=== PATIENT | male | born 1960 | race Caucasian/White ===

== ENCOUNTER → 2016-04-19 | Day surgery (SDC) | payer BC ==
[2016-04-04 10:16] LABS: BASO % 0.1 %; BASO ABS # 0.01 K/uL (0-0.2); COMPLETE YES; EOS % 1.8 %; HEMATOCRIT 49.8 % (42-52); IG% 0.4 %; LYMPH % 20.7 %; LYMPH ABS # 1.61 K/uL (1.2-3.4); MEAN CELL VOLUME 91.4 fL (80-100); MEAN CORPUSCULAR HEMOGLOBIN 31.7 pg (25-34); MEAN CORPUSCULAR HGB CONC 34.7 g/dl (32-36); MEAN PLATELET VOLUME 9.9 fL (7.4-10.4); MONO % 6.3 %; NEUT % 70.7 %; PLATELET COUNT 268 K/uL (130-400); RED BLOOD COUNT 5.45 M/uL (4.7-6.1); WHITE BLOOD COUNT 7.77 K/uL (4.8-10.8)
[2016-04-04 10:54] LABS: BLOOD UREA NITROGEN 20 mg/dl (7-18); BUN/CREATININE RATIO 19.7 (10-20); CARBON DIOXIDE 32 mmol/L (21-32); CHLORIDE 104 mmol/L (98-107); GLUCOSE 101 mg/dl (70-99); POTASSIUM 4.5 mmol/L (3.5-5.1); SODIUM 141 mmol/L (136-145)
[2016-04-05 07:50] VITALS: Ht 177.8 cm; Wt 79.5 kg
[~2016-04-19] VITALS: Ht 177.8 cm; Wt 79.5 kg
[~2016-04-19] MED LIST: AMLO-110 PO; ATROPINE SULFATE 0.1 MG/ML 5ML SYR IV PRN; BUPIVACAINE/EPINEPHRINE 0.5% MPF 1:200,000 30 ML VIAL ONE; CEFAZOLIN 2000 MG/60 ML D5W IV SCH; DEXAMETHASONE SOD INJ 4 MG/ML VIAL ONE; EpHEDrine SULFATE INJ 50 MG/ML AMP IV PRN; FENTANYL CITRATE INJ 50 MCG/1 ML 2 ML VIAL IV PRN; FENTANYL CITRATE INJ 50 MCG/1 ML 2 ML VIAL ONE; HYDROCODONE/ACETAMOPHEN 5/325MG TAB ONE; HYDROCODONE/ACETAMOPHEN 5/325MG TAB PO ONE; LACTATED RINGER'S 1000ML 1,000 ML IV SCH; LIDOCAINE HCL 2% 2 ML VIAL (20MG/ML) ONE; MIDAZOLAM HCL 1 MG/ML 2ML VIAL ONE; MoRPHine SULFATE PF 1 MG/ML 10 ML AMP/VIAL ONE; ONDANSETRON INJ 2 MG/ML 2 ML VIAL IV PRN; ONDANSETRON INJ 2 MG/ML 2 ML VIAL ONE; PROPOFOL IV EMULSION 10 MG/ML 20 ML VIAL IV ONE; SODIUM CHLORIDE 0.9% 1000ML 1,000 ML IV SCH; SUMA6KIT SC; WARF5TAB7 PO
--- NOTE | 2016-04-19 11:50 | History & Physical Bridge Note ---
H&P Re-Evaluation Bridge Note: I have examined the patient, reviewed the History & Physical and in the interval since the performance of the History & Physical I have noted the following changes of clinical significance: No changes noted
--- NOTE | 2016-04-19 11:51 | Discharge Instructions ---
Discharge Instructions Visit Reason for Visit: Left Knee Lateral Meniscus Tear Discharge Discharge Diagnosis / Problem: same Discharge Goals Goal(s): Decrease discomfort, Improve function Medications Stopped Medications Name(s): last coumadin 04/13 Activity Recommendations Activity Limitations: as noted below Lifting Limitations: until after follow-up appointment Exercise/Sports Limitations: until after follow-up appointment May Resume Sexual Activity: after follow-up appointment Shower/Bathe: keep incision dry Driving or Machine Use: no limitations Weightbearing Status: Left weightbearing (as tolerated) Anesthesia . Post Anesthesia Instructions: If you have had General Anesthesia or IV Sedation: * Do not drive today. * Resume driving when surgeon permits. * Do not make important decisions or sign legal documents today. * Call surgeon for: 1. Temperature elevations greater than 101 degrees F. 2. Uncontrollable pain. 3. Excessive bleeding. 4. Persistent nausea and vomiting. 5. Medication intolerance (nausea, vomiting or rash). * For nausea and vomiting use only clear liquids such as: tea, soda, bouillon until nausea subsides, then gradually increase diet as tolerated. * If you have any concerns or questions, call your surgeon's office. If physician is unavailable and it is an emergency, call 911 or go to the nearest emergency room. . Instructions / Follow-Up Instructions / Follow-Up The following are instructions to follow after your Arthroscopic Knee Surgery. ACTIVITY RECOMMENDATIONS: * Minimize activity until your first visit after surgery. * No excessive walking, jogging, sports or laboring. * Return to activity is individualized. Most patients are able to return to every day activities within one month. * Return to sports or intensive labor usually occurs at 2-3 months. * Driving is not permitted until at least your first postoperative visit at a minimum. Please ask your doctor when it is safe to resume driving. If you have an automatic vehicle and your left leg has been operated on, then you may begin driving as soon as you are comfortable and can drive safely. SCHOOL/WORK RECOMMENDATIONS: * You may return to sedentary work or school when you are feeling more comfortable. This is usually 3-7 days after surgery. * Expect increased discomfort with increased activity. Continue to elevate and ice the leg as much as possible. MEDICATIONS: * You will have a prescription for pain medication and an anti-inflammatory medication after surgery. * Use the pain medication for severe pain and the anti-inflammatory for less severe pain. Once the pain medication has run out, try to use the anti-inflammatory medication. If this is not effective, contact the office for assistance. * The pain medication may cause nausea, constipation and drowsiness. You should see how they affect you before driving or similar activity. * The anti-inflammatory medication may cause stomach upset and bleeding. If this occurs let your doctor know immediately . * Take a stool softener like Colace or a laxative like Senokot to prevent constipation. DIET: * Resume previous diet. SPECIAL CARE: ICE: You have the option of an ice cooler, gel packs or ice bags. * If you have an ice cooler, refer to the instructions for that device. The ice cooler may be used continuously. * If you do not have an ice cooler, you will need to use ice bags or gel packs. Do not apply ice directly to the skin. Use a thin dressing or tiffany shirt between the skin and ice bag. Apply ice for 20-30 minutes and repeat every 2-4 hours. This is especially important for the first 7-10 days after surgery. Once the pain improves, use ice as needed. ELEVATION: * Keep your leg elevated at or above the level of your heart as much as possible. * Expect some increased discomfort and swelling if you are standing for any length of time. * When lying down, avoid placing anything under your knee. Rather, prop your leg up by placing several pillows under your heel or calf. DRESSING: * Your dressing will be changed at your first therapy appointment approximately 4-5 days after surgery. Band-aids, tape strips or gauze may be applied. You may then change your dressing daily. * Reapply dressing followed by the Kemal wrap or Tubi-electrotype molder stockinet and EBIce cooling pad (if chosen). * Always wash your hands prior to touching the incision area. * Once the stitches are removed, you may leave the wound open to air or cover with an Kemal wrap or Tubi-electrotype molder stockinet. * If you have been given a white elastic stocking (CHATO hose), wear as much as possible for the first 1-3 weeks depending on swelling. * Expect some bloody drainage for the first few days after surgery. * Leave the tape strips, if present, in place for 5-7 days. * Band-aids and gauze may be changed daily. CRUTCHES: * You will need to use crutches after surgery. * You may gradually progress to full weight bearing as tolerated and wean off the crutches unless otherwise advised. * Your therapist can provide assistance weaning off crutches. * Patients who have a microfracture done may need to be toe-touch weight- bearing for 4-6 weeks. BATHING: * You may shower or sponge-bathe immediately after surgery. * The dressing will need to be covered with a plastic bag or plastic wrap until the dressing is changed on the fourth or fifth day after surgery. * Once the dressing has been changed on the fourth or fifth day after surgery, you may shower and get the incision wet. * Wash with regular soap and water. * Do not bathe (submerge the incision), soak, swim or use a hot tub until the incision is completely healed over with normal skin and the doctor has given the OK to proceed. * There is no need to apply any ointments, powders or salves to your incision. * Do not apply alcohol or hydrogen peroxide directly to the incision. * Diluted peroxide (50:50 mixture with sterile saline) may be used to clean dried blood from around the incision area. BRACE: * Bracing is generally not needed after routine Arthroscopic Knee surgery. THERAPY: * You will begin therapy four or five days after surgery. * Organized therapy with the therapist is important for the first 4-6 weeks after surgery. During that time you will attend therapy 1-3 times per week. * You will also need to do daily exercises for range of motion and strength as instructed. PROBLEMS/QUESTIONS: * If you have any problems such as severe pain, numbness, tingling or high fevers or if you have any questions, please contact the office at [phone]. * It is not uncommon to have some numbness and tingling after the surgery especially if you have had a nerve block done. This should gradually improve over the first 1- 2 days. If this persists longer or worsens please contact the office. FOLLOW UP VISIT: * If not already scheduled, please call the office at to schedule a follow-up appointment for 10 days, 6 weeks and 3 months after surgery. Diet Recommendations Recommended Home Diet: resume previous diet Fluid Restriction: None Procedures Procedures Performed: see op note Pending Studies Studies pending at discharge: no Medical Emergencies . Who to Call and When: Medical Emergencies: If at any time you feel your situation is an emergency, please call 911 immediately. . Non-Emergent Contact Non-Emergency issues call your: Specialist Call Non-Emergent contact if: temperature is above 101.5 . . "Provider Documentation" section prepared by Kevin Hendrix.
--- NOTE | 2016-04-19 12:39 | [facility] Post Operative Brief Note ---
Immediate Operative Summary Operative Date Apr 19, 2016. Pre-Operative Diagnosis Left Knee Lateral Meniscus Tear Post-Operative Diagnosis same/DJD LATERAL COMPARTMENT/PFJ Procedure(s) Performed Left Knee Arthroscopy, Partial Lateral Meniscectomy,Chondroplasty Lateral Femoral Condyle Surgeon Dr. Mike Hendrix Entry Level Marketing Assistant Surgeon(s) Jacinto Starks PA-C Estimated Blood Loss trace Findings SEE OP NOTE Fluids (cc crystalloids) 1000CC Specimens none Drains NONE Anesthesia LMA Complication(s) None Disposition Recovery Room / PACU
--- NOTE | 2016-04-19 13:09 | Anesthesia Progress Nt - [facility] ---
Anesthesia Post Op Note Date & Time Apr 19, 2016 at 13:08 Vital Signs Pain Intensity: 0 Vital Signs Past 12 Hours Date Time Temp Pulse Resp B/P Pulse Ox O2 Delivery O2 Flow Rate FiO2 04/19/16 12:59 68 16 04/19/16 12:59 68 16 100 04/19/16 12:58 108/65 04/19/16 12:54 53 7 99 04/19/16 12:54 53 7 04/19/16 12:53 98/64 04/19/16 12:49 57 13 99 04/19/16 12:49 36.9 56 12 98/65 99 Diffusion Mask 6 04/19/16 12:49 55 13 04/19/16 11:11 36.4 61 16 110/78 98 Room Air Notes Mental Status: alert / awake / arousable, participated in evaluation Pt Amnestic to Procedure: Yes Nausea / Vomiting: adequately controlled Pain: adequately controlled Airway Patency, RR, SpO2: stable & adequate BP & HR: stable & adequate Hydration State: stable & adequate Anesthetic Complications: no major complications apparent
--- NOTE | 2016-04-19 13:18 | OPERATIVE REPORT ---
DATE OF OPERATION: 04/19/2016 PREOPERATIVE DIAGNOSIS: Left knee lateral meniscal tear. POSTOPERATIVE DIAGNOSIS: Left knee same with degenerative joint disease of the lateral compartment and patellofemoral joint. PROCEDURES: Left knee arthroscopy, partial lateral meniscectomy, chondroplasty of the lateral femoral condyle. SURGEON: Dr. Hendrix. ICE RESURFACING MACHINE OPERATORS: Jacinto Starks PA-C. HISTORY OF PRESENT ILLNESS: This 56-year-old white male presented to the office with complaints of lateral knee pain. He had tried conservative care measures without success. He elected to proceed with surgical intervention after being educated about potential risks and outcomes. OPERATION: The patient was taken to the operating room where he was given general anesthetic. He was prepped and draped in the usual sterile fashion. Please see Dr. Hendrix's operative report for specifics of the procedure. I was present for the entire case from initial patient positioning through final wound closure. Assistance was provided in patient positioning, arthroscopy, and final wound closure. The patient was taken to the recovery room in satisfactory condition. I attest to the content of the Intraoperative Record and any orders documented therein. Any exceptio ns are noted below.
--- NOTE | 2016-04-19 13:33 | OPERATIVE REPORT ---
DATE OF OPERATION: 04/19/2016 SURGEON: Dr. Hendrix. SMALL LOT OPERATOR: Jacinto Starks PA-C. No resident or fellow available. PREOPERATIVE DIAGNOSIS: Lateral meniscus tear. POSTOPERATIVE DIAGNOSIS: Same with lateral femoral compartment osteoarthritis as well as patellofemoral joint arthritis. OPERATION: 1. Exam under anesthesia. 2. Diagnostic arthroscopy. 3. Arthroscopic partial lateral meniscectomy. 4. Arthroscopic chondroplasty of lateral femoral condyle and patellofemoral joint. PERIOPERATIVE SITUATION: Medically cleared male with intractable knee pain with physical exam, x-ray and MRI scan revealing some early DJD changes with a large lateral meniscus tear. He has continued mechanical symptoms and pain, wants to proceed with surgical treatment. He is on Coumadin. He was bridged with Lovenox and has now been off Coumadin for 5 days. He did not get any Lovenox in the last 12 hours. OPERATION: The patient appropriately identified, site verified, consent verified, 2 grams of Ancef confirmed as being given. The left lower extremity was examined revealing no ligamentous instability. He was then sterilely injected with 20 mL of 0.5% Marcaine with epinephrine and 5 mg of Duramorph for postoperative pain control. The leg was then prepped and draped in usual routine fashion. The tourniquet was not utilized or applied. Inframedial and inferolateral portals were then identified and injected with 4 mL of 0.5% Marcaine with epinephrine. The knee joint was then entered and there was extensive synovitis. This was all debrided at the end of the case. The medial compartment was relatively healthy with relatively healthy medial meniscus, some minor chondral changes in the most medial aspect of the medial femoral condyle, which was incidentally debrided. The ACL and PCL were normal. The lateral meniscus was quite abnormal as well as the lateral femoral condyle. The lateral femoral condyle had some articular disease grade 4 lesion with some minor bone fragments, this was all removed to a stable base. It was elected not to microfracture based on the fact he had a significant compartment problem with the meniscus tear as well as his age. The lateral meniscus was a large flap tear incarcerated underneath the tibial surface. 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 Once this was all cleaned out and resected, the compartment was clean. The area of the defect was approximately 1.5 x 1.5 cm on the lateral femoral condyle. No other additional loose pieces were noted when the knee was scoped from the opposite side. The procedure was then terminated. All instruments and fluid removed. The portals were closed with 3-0 nylon and dressed appropriately with a bulky dressing and a CHATO stocking. DVT prophylaxis by restarting his routine Coumadin, he is on it chronically. He will get 10 mg tonight and 5 mg thereafter. INR per his primary care doctor. Weightbearing to tolerance. Range of motion to tolerance. I attest to the content of the Intraoperative Record and any orders documented therein. Any exceptio ns are noted below.
[2016-04-19 13:34] VITALS: TEMP 36.3
[2016-04-19 14:10] VITALS: BP 113/74; PULSE 53; O2SAT 95
== END | disposition home or self-care (01) ==
LOC: X.SURG 10:56
PROVIDERS: ATTEND Physical Medicine & Rehabilitation Sports Medicine
DX: M23.362 Other meniscus derangements, other lateral meniscus, left knee (principal); M17.12 Unilateral primary osteoarthritis, left knee; Z79.01 Long term (current) use of anticoagulants; Z86.718 Personal history of other venous thrombosis and embolism; Z86.711 Personal history of pulmonary embolism; Z80.3 Family history of malignant neoplasm of breast; Z80.42 Family history of malignant neoplasm of prostate

== ENCOUNTER 2024-08-29 09:15 | Observation (INO) ==
--- NOTE | 2024-08-15 10:04 | PAT Medication Instructions ---
Medication Instructions Date of Service August 15, 2024 Home Medications Beet Root 1 cap PO DAILY Methylated Vitamin B Complex 1 cap PO DAILY Vitamin C 1 tab PO DAILY amlodipine 5 mg tablet 5 mg PO QAM headaches digestive enzymes 1 cap PO DAILY resveratrol-r.ivca-sxctvct-zvpzc sd-p.cusp.-C-pomg 200 mg-60 mg cap (Red Wine Extract) 1 cap PO DAILY sumatriptan succinate 6 mg/0.5 mL subcutaneous pen injector 6 mg subcut UD PRN migraines warfarin 5 mg tablet 5 mg PO QPM ASK your prescriber and surgeon warfarin 5 mg tablet 5 mg PO QPM STOP taking 2 weeks before surgery (or as soon as possible if surgery is within 2 weeks) Beet Root 1 cap PO DAILY Methylated Vitamin B Complex 1 cap PO DAILY resveratrol-r.aalj-jjinrdd-huvkt sd-p.cusp.-C-pomg 200 mg-60 mg cap (Red Wine Extract) 1 cap PO DAILY DO NOT take the morning of surgery Vitamin C 1 tab PO DAILY digestive enzymes 1 cap PO DAILY Take morning of surgery With a small sip of water, OTHERWISE NOTHING TO EAT OR DRINK AFTER MIDNIGHT: amlodipine 5 mg tablet 5 mg PO QAM headaches sumatriptan succinate 6 mg/0.5 mL subcutaneous pen injector 6 mg subcut UD PRN migraines (if needed) Other Notes If you have any questions please call us at [phone] or [phone] or [phone] or [phone]
--- NOTE | 2024-08-16 11:13 | Anesthesiology Consultation ---
Date of Service August 16, 2024 Assessment & Plan (1) Encounter for pre-operative examination: - Check coags DOS (warfarin instructions per surgeon/prescriber). - Infectious disease screening: Per assessment on 08/15/24- No known recent infectious disease contacts or current infectious disease symptoms. - Outpatient joint assessment: Pt currently scheduled for inpatient pathway. If surgeon requests review for outpatient joint pathway, patient is not recommended candidate for outpatient joint program from anesthesia standpoint based on available information. - Patient acceptable risk for surgery pending upcoming PCP visit (Carolina Alcantar PAC, appt 08/19). History Surgery Operation Date: 08/29/24 11:00 Proposed Procedures p Right Total Hip Arthroplasty - Salvatore Andrade MD Height/Weight Height: 5 ft 10 in Weight: 85 kg Allergies Allergy/AdvReac Type Severity Reaction Status Date / Time oxycodone Allergy Hives Verified 08/15/24 09:32 Medications Home Medications Medication Instructions Recorded Confirmed Last Taken Beet Root 1 cap PO DAILY 08/15/24 08/15/24 Unknown Methylated Vitamin B Complex 1 cap PO DAILY 08/15/24 08/15/24 Unknown Vitamin C 1 tab PO DAILY 08/15/24 08/15/24 Unknown amlodipine 5 mg tablet 5 mg PO QAM headaches 08/15/24 08/15/24 Unknown digestive enzymes 1 cap PO DAILY 08/15/24 08/15/24 Unknown resveratrol-r.gryo-xkbltxh-hktkd 1 cap PO DAILY 08/15/24 08/15/24 Unknown sd-p.cusp.-C-pomg 200 mg-60 mg cap (Red Wine Extract) sumatriptan succinate 6 mg/0.5 mL 6 mg subcut UD PRN migraines 08/15/24 08/15/24 Unknown subcutaneous pen injector warfarin 5 mg tablet 5 mg PO QPM 08/15/24 08/15/24 Unknown Past Medical History Medical History History of COVID-2019, no residual symptoms Hx of deep venous thrombosis (02/2014) 2/2 MTHFR Hx of gastroesophageal reflux (GERD) years ago, made diet changes no issues since Hx of migraines Hx of MTHFR mutation Hx pulmonary embolism (02/25/14) 2/2 MTHFR Skin cancer Right ear Exercise / Class Metabolic Activity II 4-5 Yardwork/Stairs/Walk up hill (one FS: No CP, no SOB) Past Surgical History Surgical History Hx of arthroscopy of left knee x2 Hx of colonoscopy Hx of LASIK Hx of repair of right rotator cuff Past Anesthesia History No Hx of Anesthesia Complications and No Family Hx of Anesthesia Complications History of PONV No Hx of PONV and No Hx of Motion Sickness Social History Smoking Status: Never smoker Do You Dip or Chew Tobacco: No Hx Alcohol Use: Yes Alcohol type: wine alcohol intake frequency: holidays/special occasions only Hx Substance Use: No substance use type: does not use Review of Systems Patient denies chest pain, shortness of breath, dyspnea on exertion, fever, chills, cough, wheezing. Physical Exam Physical Full cervical extension range of motion. Full TMJ range of motion. TMD 3 finger breaths Mallampati Score III Dentition: intact, + cap Lungs: clear throughout to auscultation Cardiac: regular rate and rhythm, no murmurs noted Spine: normal Carotid arteries: negative bruit Extremities: no LE edema Lab Results Anesthesia Preop Results Results Anesthesia Widget: WBC 6.76 K/ul (4.8-10.8) 08/16/24 Hgb 15.9 g/dl (14.0-18.0) 08/16/24 Hct 46.9 % (42.0-52.0) 08/16/24 Plt 301 K/uL (130-400) 08/16/24 Na 138 mmol/L (136-145) 08/16/24 K 4.5 mmol/L (3.5-5.1) 08/16/24 Cl 104 mmol/L (98-107) 08/16/24 CO2 29 mmol/L (21-32) 08/16/24 BUN 19 mg/dl (6-23) 08/16/24 Creat 0.99 mg/dl (0.6-1.4) 08/16/24 Glucose Level 92 mg/dl (70-99(Fasting)) 08/16/24 PT 23.0 Seconds (9.0-12.0) H 08/16/24 PTT 37 Seconds (21-31) H 08/16/24 INR 2.3 (0.9-1.1) H 08/16/24 Urine Color Yellow 08/16/24 Urine Appearance Clear (Clear) 08/16/24 Urine pH 5.0 (4.5-7.5) 08/16/24 Urine Specific [place] 1.017 (1.000-1.030) 08/16/24 Urine Protein Negative (Negative) 08/16/24 Urine Glucose (UA) Negative (Negative) 08/16/24 Urine Ketones Negative (Negative) 08/16/24 Urine Blood Negative (Negative) 08/16/24 Urine Nitrite Negative (Negative) 08/16/24 Urine Bilirubin Negative (Negative) 08/16/24 Urine Urobilinogen Negative (Negative) 08/16/24 Urine Leukocyte Esterase Negative (Negative) 08/16/24 Blood Type A Positive 08/16/24 Antibody Screen NEGATIVE 08/16/24 Testing Electrocardiogram Date: 08/16/24 SB at 59bpm. iRBBB. No significant change compared to 04/04/2016 per smash piecer comparison. Chest X-Ray Date: 08/16/24 IMPRESSION: 1. No active cardiopulmonary disease. 2. Mild thoracic spondylosis.
[~2024-08-29 09:15] MED LIST changes: -AMLO-110 PO; -ATROPINE SULFATE 0.1 MG/ML 5ML SYR IV PRN; +BUPIVACAINE 0.5 % 5 MG/1 ML PF 10ML VIAL ONE; -BUPIVACAINE/EPINEPHRINE 0.5% MPF 1:200,000 30 ML VIAL ONE; -CEFAZOLIN 2000 MG/60 ML D5W IV SCH; -DEXAMETHASONE SOD INJ 4 MG/ML VIAL ONE; -EpHEDrine SULFATE INJ 50 MG/ML AMP IV PRN; -FENTANYL CITRATE INJ 50 MCG/1 ML 2 ML VIAL IV PRN; -FENTANYL CITRATE INJ 50 MCG/1 ML 2 ML VIAL ONE; -HYDROCODONE/ACETAMOPHEN 5/325MG TAB ONE; -HYDROCODONE/ACETAMOPHEN 5/325MG TAB PO ONE; -LACTATED RINGER'S 1000ML 1,000 ML IV SCH; +LIDOCAINE 2% 2 ML VIAL/AMP(20MG/ML) INFIL ONE; -LIDOCAINE HCL 2% 2 ML VIAL (20MG/ML) ONE; -MoRPHine SULFATE PF 1 MG/ML 10 ML AMP/VIAL ONE; -ONDANSETRON INJ 2 MG/ML 2 ML VIAL IV PRN; -ONDANSETRON INJ 2 MG/ML 2 ML VIAL ONE; -SODIUM CHLORIDE 0.9% 1000ML 1,000 ML IV SCH; -SUMA6KIT SC; -WARF5TAB7 PO; +fentaNYL citrate PF 100 MCG/2 ML VIAL ONE
[2024-08-29] MEDS: FAMOTIDINE 20 MG TAB PO SCH (09:50)
[2024-08-29] MEDS: CeleBREX 200 MG CAP PO SCH ×2 (09:50→20:55)
[2024-08-29] MEDS: traMADol HCL 50 MG TABLET PO SCH (09:50)
[2024-08-29] MEDS: ACETAMINOPHEN 500 MG TAB PO SCH ×2 (09:50→14:49)
[2024-08-29] MEDS: LR 500ML BOLUS, THEN 15ML/HR IV SCH (09:51)
[2024-08-29] MEDS: Scopolamine 1 MG TDSY TD SCH (09:51)
[2024-08-29] MEDS: LR 60ML/HR IV SCH (09:51)
[2024-08-29] MEDS: dexAMETHasone**PF** 10 MG/ML VIAL IV SCH (09:51)
[2024-08-29 10:04] LABS: Partial Thromboplastin Time 27 Seconds (21-31); Prothrombin Time 10.9 Seconds (9.0-12.0)
[2024-08-29] MEDS ORDERED: MIDAZOLAM HCL 1 MG/ML 2ML VIAL ONE (10:06)
[2024-08-29] MEDS ORDERED: fentaNYL citrate PF 100 MCG/2 ML VIAL ONE (10:06)
[2024-08-29] MEDS ORDERED: ONDANSETRON INJ 2 MG/ML 2 ML VIAL ONE (10:10)
[2024-08-29] MEDS ORDERED: ATROPINE SULFATE 0.1 MG/ML 10ML SYR IV PRN (10:40)
[2024-08-29] MEDS ORDERED: ONDANSETRON INJ 2 MG/ML 2 ML VIAL IV PRN ×2 (10:40→13:03)
[2024-08-29] MEDS ORDERED: HYDROmorphone INJ 2 MG/ML SYR/VIAL IV PRN (10:40)
[2024-08-29] MEDS ORDERED: PROMETHAZINE HCL 6.25 MG in SODIUM CHLORIDE 0.9% 50 ML IV PRN (10:40)
[2024-08-29] MEDS ORDERED: ePHEDrine sulfate 50 MG/ML AMP IV PRN (10:40)
--- NOTE | 2024-08-29 10:48 | History & Physical Bridge Note ---
Date of Service August 29, 2024 History & Physical Bridge Note I have examined the patient, reviewed the History & Physical and in the interval since the performance of the History & Physical I have noted the following changes of clinical significance: no changes noted
[2024-08-29] MEDS: ceFAZolin 2000MG 2,000 MG/15 ML SYR IV SCH ×2 (11:25→19:43)
[2024-08-29] MEDS: ROPIV 0.5% 246mg, Ketorolac 30mg, EPINEPHrine 0.5mg in NSS INFIL SCH (11:55)
[2024-08-29] MEDS: ORTHO JOINT ANESTHETIC ONE (11:56)
[2024-08-29] MEDS: TRANEXAMIC ACID 1,000 MG x 1 **TOPICAL Use Intraop TOP SCH (11:56)
[2024-08-29] MEDS ORDERED: ePHEDrine sulfate 50 MG/5 ML SYR ONE ×2 (12:01)
--- NOTE | 2024-08-29 12:54 | Operative Report ---
Post Operative Report Pre & Post Diagnosis Operation Date: 08/29/24 11:20 Pre-Op Diagnosis: Right Hip Degenerative Joint Disease Post-Op Diagnosis: Right Hip Degenerative Joint Disease I identified the patient and participated in the time-out.: Yes Procedure Operation Date: 08/29/24 11:20 Actual Procedures p Right Total Hip Arthroplasty, Uncemented(Right) - Salvatore Andrade MD Surgeon Salvatore Andrade MD Production Material Coordinator EARL Bautista PA-C. No resident or fellow was available to assist. Estimated Blood Loss 100 Findings Consistent with Post-Op Diagnosis Specimens Right femoral head Anesthesia Type Spinal MAC Complications none Disposition Disposition: Recovery Room Indications 64-year-old male with right hip osteoarthritis refractory to conservative management. X-rays demonstrate severe joint space narrowing, subchondral sclerosis, and marginal osteophyte formation. I had a long discussion with him about his diagnosis and treatment options. He was a candidate for surgery in order to improve pain and promote function. I had a long discussion with him about the risks and benefits of surgery, alternatives to surgery, and expected outcomes. After reviewing all these he elected to proceed with surgery. All questions were answered. Informed consent was signed. Description of Procedure Patient was identified in the preoperative holding area where the surgical site, right hip, was marked. A spinal anesthetic was placed, then the patient was brought back to the main operating room, placed in the operating table and moved into the lateral decubitus position. Axillary roll was placed. All bony prominences were padded. Perioperative antibiotics and tranexamic acid 1 gram IV were administered. The operative extremity was prepped and draped in the normal sterile fashion. Prior to incision a multidisciplinary timeout was called. All in the room were in agreement. We began by making an incision for a posterior approach to the hip. We dissected down through subcutaneous tissues to the level of the fascia. The fascia was incised in line with the incision. Charnley bow was placed. Fatty tissue was reflected posteriorly off the back of the greater trochanter to expose the piriformis and short external rotators of the hip. Quadratus femoris was taken off the femur subperiosteally. The piriformis and short external rotators were dissected off the posterior aspect of the hip. A box cut was made in the capsule. Inferior hip capsule was released off the femur. The femoral head was dislocated. The femoral neck cut was made at our preoperative template. The acetabulum was then exposed. The labrum was sharply excised. Contents of the cotyloid fossa were removed with electrocautery. We then began reaming at a size 8 mm less than our preoperative template. We reamed up by 1 [address] the way up to a size 54 mm cup. This gave us good bleeding cancellus bone circumferentially. The acetabulum was then irrigated out and dried. The real [place] Gription cup was then impacted down into position with 45 degrees of lateral opening and 25 degrees of anteversion. A single cancellous bone screw was placed up into the ilium. Excellent fixation was obtained. A trial liner for a 36 mm femoral head was then placed. Next we turned our attention to the femur. The lateral neck was removed with a box osteotome. Intramedullary guide was used to establish the intramedullary canal. We then broached all the way up to a size 5. We began trialing with a high offset neck and a +5 head. Hip was reduced. Leg lengths were symmetric. The hip was stable in extension and external rotation, and stable in the sleeper position. At 90 degrees of hip flexion the hip could be internally rotated 60 degrees before levering out of the cup. I was very happy with the stability exam. Therefore the hip was dislocated and the femoral trial was removed. The acetabulum was re-exposed, and the trial liner was removed. Anna hole elimina tor screw was placed. An Altrx polyethylene liner for a 36 mm femoral head was then impacted into the shell. The locking mechanism was checked to ensure that it had engaged which it had. The femur was re-exposed. The femoral canal was irrigated and dried. The real Actis femoral stem was opened up. This was impacted down into position. The femoral head was opened up and gently impacted down onto the trunnion. The hip was atraumatically reduced. Another 1 gram of IV tranexamic acid was started prior to closure. The wound was irrigated out with sterile Betadine solution. The periarticular injection cocktail was then placed. The short external rotators, piriformis, and posterior capsule were repaired through drill holes in the greater trochanter using #2 Vicryl. The fascia was run with a looped #1 PDS. The subcutaneous layer was closed with #1 PDS. The dermal layer was closed with 2-0 Vicryl. Zip line was used for the skin followed by a Silverlon dressing. A compressive d ressing was then placed. The patient was then rolled supine. Leg lengths were rechecked and were symmetric. An abduction pillow was placed. Sedation was lifted and the patient was transferred to the recovery room in stable condition. Summary of implants: Depuy [place] Gription Acetabular Shell Sector Cup, 54 mm outer diameter [place] Cancellous bone screw, 6.5 x 35 mm Anna hole eliminator [place] Altrx Polyethylene Acetabular Liner, Neutral, with a 36 mm inner diameter DePuy Actis collared cementless Femoral stem, 12/14 taper, size 5 high offset 36 mm ceramic femoral head with +5 offset Postoperative course: Patient will be admitted overnight from the recovery room. Patient will be weightbearing as tolerated with posterior hip precautions. Resume warfarin tomorrow for DVT prophylaxis I attest to the content of the Intraoperative Record and any orders documented therein. Any exceptions are noted below.
--- NOTE | 2024-08-29 13:00 | Operative Report ---
Post Operative Report Pre & Post Diagnosis Operation Date: 08/29/24 11:20 Pre-Op Diagnosis: Right Hip Degenerative Joint Disease Post-Op Diagnosis: Right Hip Degenerative Joint Disease I identified the patient and participated in the time-out.: Yes Procedure Operation Date: 08/29/24 11:20 Actual Procedures p Right Total Hip Arthroplasty, Uncemented(Right) - Salvatore Andrade MD Surgeon Salvatore Andrade MD Machine Stitcher EARL Bautista PA-C. No resident or fellow was available to assist. Estimated Blood Loss 100 Findings Consistent with Post-Op Diagnosis Specimens femoral head Description of Procedure I was present during the entire case assisting with positioning, prepping, draping, wound retraction, wound closure, dressing and abduction pillow placement. No fellow present. Please see Dr. Andrade procedure note for specifics of the case. I attest to the content of the Intraoperative Record and any orders documented therein. Any exceptions are noted below.
[2024-08-29] MEDS ORDERED: diphenhydrAMINE 50 MG/ML VIAL IV PRN (13:03)
[2024-08-29] MEDS ORDERED: MAGNESIUM HYDROXIDE SUSP 30 ML UDC PO PRN (13:03)
[2024-08-29] MEDS ORDERED: traMADol HCL 50 MG TABLET PO PRN (13:03)
[2024-08-29] MEDS ORDERED: ALUMINUM/MAGNESIUM SUSP 30 ML UDC PO PRN (13:03)
[2024-08-29] MEDS ORDERED: TAMSULOSIN HCL 0.4 MG CAP PO PRN (13:03)
[2024-08-29] MEDS ORDERED: NALOXONE HCL 0.4 MG/1 ML VIAL/CARP IV PRN (13:03)
[2024-08-29] MEDS ORDERED: METOCLOPRAMIDE HCL INJ 5 MG/ML 2 ML VIAL IV PRN (13:03)
[2024-08-29] MEDS ORDERED: bisacodyL 10 MG SUPP PR PRN (13:03)
[2024-08-29] MEDS: fentaNYL citrate PF 100 MCG/2 ML VIAL IV PRN (13:27)
--- NOTE | 2024-08-29 13:45 | Anesthesiology Progress Note ---
Date of Service August 29, 2024 Anesthesia Post Procedure Vital Signs Vital Signs: Temp Pulse Pulse Resp BP Pulse Ox O2 Del Method 08/29/24 13:40 36.5 C 82 15 133/72 93 Room Air 08/29/24 13:30 81 17 133/75 95 Room Air 08/29/24 13:20 87 12 130/74 94 Room Air 08/29/24 13:10 73 13 117/68 96 Oxymask 08/29/24 13:02 36.4 C L 88 16 119/70 94 Oxymask 08/29/24 09:35 36.6 C 66 18 133/80 95 Room Air O2 Flow Rate 08/29/24 13:40 08/29/24 13:30 08/29/24 13:20 08/29/24 13:10 4 08/29/24 13:02 5 08/29/24 09:35 Pain Intensity Right Hip: Pain Intensity: 2 Transfer of Care Handoff Completed per policy Notes Mental Status: alert / awake / arousable Patient Amnestic to Procedure: Yes Nausea / Vomiting: adequately controlled Pain: adequately controlled Airway Patency, RR, SpO2: stable & adequate BP & HR: stable & adequate Hydration State: stable & adequate Neuraxial Anesthesia: was administered and sensory block is resolving Anesthetic Complications: no major complications apparent and Pt Satisfied with anesthetic care
--- NOTE | 2024-08-29 13:48 | XRay Report ---
XR pelvis 1-2V routine CLINICAL HISTORY: In PACU - Post Surgical COMPARISON: 08/16/2024 FINDINGS: Right hip prosthesis shows no hardware complication. There is expected soft tissue gas. IMPRESSION: Unremarkable postoperative exam. ACT 112: Negative or not required by law. Electronically signed by: Zoltan Lynn M.D. 08/29/2024 1:47 PM
[2024-08-29 14:01] VITALS: RESP 16
[2024-08-29] MEDS: SODIUM CHLORIDE 0.9% 1,000 ML IV SCH (14:47)
[2024-08-29] MEDS: KETOROLAC TROMETHAMINE 15 MG/ML VIAL IV SCH (14:49)
[2024-08-29] MEDS: WARFARIN SOD 5 MG TAB PO SCH (17:03)
[2024-08-29] MEDS: PSYLLIUM HUSK 4GM PACKET PO SCH (17:04)
[2024-08-29] MEDS: Scopolamine CHECK PATCH PLACEMENT SCH (17:05)
[2024-08-29] MEDS: DOCUSATE SODIUM 100 MG CAP PO SCH (20:30)
[2024-08-29] MEDS: SENNA 8.6 MG TAB PO SCH (20:30)
[2024-08-29] MEDS: ENOXAPARIN INJ 40 MG/0.4 ML SYR SQ SCH (20:31)
[2024-08-30] MEDS: SUMAtriptan succinate 6 MG/0.5 ML VIAL SQ PRN (02:31)
[2024-08-30 06:09] LABS: Basophils # (auto) 0.01 K/uL (0.00-0.20); Basophils % (auto) 0.1 %; Hematocrit (blood only) 39.6 % (42.0-52.0); Hemoglobin 13.5 g/dl (14.0-18.0); Immature Granulocytes # (auto) 0.06 K/uL (0.01-0.20); Immature Granulocytes % (auto) 0.5 %; Lymphocytes # (auto) 1.09 K/uL (1.20-3.40); Lymphocytes % (auto) 8.4 %; Mean Corpuscular Hemoglobin 30.1 pg (25.0-34.0); Mean Corpuscular Hgb Conc 34.1 g/dL (32.0-36.0); Mean Corpuscular Volume 88.4 fL (80.0-100.0); Mean Platelet Volume 9.2 fL (9.4-12.4); Monocytes % (auto) 6.2 %; Neutrophils # (auto) 10.94 K/uL (1.40-6.50); Neutrophils % (auto) 84.8 %; Platelet Count 274 K/uL (130-400); RDW Coefficient of Variation 13.2 % (11.5-14.5); RDW Standard Deviation 42.6 fL (36.4-46.3); Red Blood Count 4.48 M/uL (4.70-6.10)
[2024-08-30 06:23] LABS: BUN Creatinine Ratio 15.6 (10-20); Calcium 8.8 mg/dl (8.6-10.3); Creatinine Clr Calc Pharmacy 82.4 ml/min; Potassium 4.2 mmol/L (3.5-5.1)
[2024-08-30 07:08] VITALS: BP 102/64; PULSE 54; TEMP 97.7; O2SAT 97
[2024-08-30] MEDS: dexAMETHasone 10 MG in SYRINGE 0 ML IV SCH (07:22)
[2024-08-30] MEDS: MULTIVITAMIN TAB PO SCH (08:18)
[2024-08-30] MEDS: amLODIPine BESYLATE 5 MG TAB PO SCH (08:18)
[2024-08-30] MEDS: ASCORBIC ACID 500 MG TAB PO SCH (08:18)
[2024-08-30] MEDS: VITAMIN B COMPLEX TAB PO SCH (08:18)
[2024-08-30] MEDS ORDERED: ENOXAPARIN INJ 40 MG/0.4 ML SYR SQ SCH (09:00)
[2024-08-30] MEDS ORDERED: NON-FORMULARY MEDICATION (Digestive Enzymes Capsule) PO SCH (09:00)
--- NOTE | 2024-08-30 10:08 | Orthopedic Progress Note ---
Date of Service August 30, 2024 Assessment & Plan (1) S/P total hip arthroplasty: Plan: Total hip precautions reviewed Weightbearing as tolerated with walker assistance Keep Silverlon dressing in place Ice with easy wrap DVT prophylaxis with Coumadin and CHATO stockings Pain control with p.o. medication Plan is to discharge home today with in-home physical therapy. Abduction pillow use x 6 weeks Follow-up at [facility] orthopedics as previously scheduled With questions contact our clinic at [phone] Admission and Anticipated Discharge Date Admission Date: August 29, 2024 Subjective This 64-year-old male is day 1 status post right total hip arthroplasty. Patient states he is doing very well. He states his pain is effectively co ntrolled with the oral pain medication he has been given. Currently he denies chest pain, shortness of breath, fever, chills, sweats, nausea, vomiting, diarrhea or difficulty voiding. He has no complaint of numbness or tingling in his right lower extremity. Review of Systems Review of Systems: All systems reviewed & are unremarkable except as noted in Subjective Physical Exam Physical Exam: Right hip: Outer dressing was removed. Silverlon is clean dry and intact left in place. Patient is able to perform active straight leg raise test. He is able to actively dorsi and plantarflex foot. Quad strength is 4 out of 5. Sandy ash has no discomfort with logroll testing. He tolerates passive hip flexion beyond 80 degrees and only feels a slight tugging sensation with light passive internal rotation and has no discomfort with external rotation. He is neurovascularly intact in the right lower extremity. Results & Data Vital Signs (Past 12 Hours) Vital Signs Temp Pulse Resp BP Pulse Ox O2 Del Method 08/30/24 07:00 36.5 C 54 L 16 102/64 97 Room Air 08/30/24 06:24 60 08/30/24 02:57 36.4 C L 49 L 16 110/69 98 Room Air 08/29/24 23:23 36.4 C L 53 L 16 95/59 L 97 Room Air Diagnostic Findings Laboratory Results WBC 12.90 K/ul (4.8-10.8) H 08/30/24 05:43 RBC 4.48 M/uL (4.70-6.10) L 08/30/24 05:43 Hgb 13.5 g/dl (14.0-18.0) L 08/30/24 05:43 Hct 39.6 % (42.0-52.0) L 08/30/24 05:43 MCV 88.4 fL (80.0-100.0) 08/30/24 05:43 MCH 30.1 pg (25.0-34.0) 08/30/24 05:43 MCHC 34.1 g/dL (32.0-36.0) 08/30/24 05:43 RDW Std Deviation 42.6 fL (36.4-46.3) 08/30/24 05:43 RDW Coeff of Narciso 13.2 % (11.5-14.5) 08/30/24 05:43 Plt Count 274 K/uL (130-400) 08/30/24 05:43 MPV 9.2 fL (9.4-12.4) L 08/30/24 05:43 Immature Gran % (Auto) 0.5 % 08/30/24 05:43 Neut % (Auto) 84.8 % 08/30/24 05:43 Lymph % (Auto) 8.4 % 08/30/24 05:43 Lassen % (Auto) 6.2 % 08/30/24 05:43 Eos % (Auto) 0.0 % 08/30/24 05:43 Baso % (Auto) 0.1 % 08/30/24 05:43 Neut # (Auto) 10.94 K/uL (1.40-6.50) H 08/30/24 05:43 Lymph # (Auto) 1.09 K/uL (1.20-3.40) L 08/30/24 05:43 Lassen # (Auto) 0.80 K/uL (0.11-0.59) H 08/30/24 05:43 Eos # (Auto) 0.00 K/uL (0.00-0.50) 08/30/24 05:43 Baso # (Auto) 0.01 K/uL (0.00-0.20) 08/30/24 05:43 Immature Gran # (Auto) 0.06 K/uL (0.01-0.20) 08/30/24 05:43 PT 10.9 Seconds (9.0-12.0) 08/29/24 09:20 INR 1.0 (0.9-1.1) 08/29/24 09:20 APTT 27 Seconds (21-31) 08/29/24 09:20 PTT Ratio 1.0 08/29/24 09:20 Sodium 139 mmol/L (136-145) 08/30/24 05:43 Potassium 4.2 mmol/L (3.5-5.1) 08/30/24 05:43 Chloride 108 mmol/L (98-107) H 08/30/24 05:43 Carbon Dioxide 26 mmol/L (21-32) 08/30/24 05:43 Anion Gap 5 (3-11) 08/30/24 05:43 BUN 15 mg/dl (6-23) 08/30/24 05:43 Creatinine 0.96 mg/dl (0.6-1.4) 08/30/24 05:43 Est Cr Clr Drug Dosing 82.4 ml/min 08/30/24 05:43 eGFR 89.37 08/30/24 05:43 BUN/Creatinine Ratio 15.6 (10-20) 08/30/24 05:43 Glucose 122 mg/dl (70-99(Fasting)) H 08/30/24 05:43 Calcium 8.8 mg/dl (8.6-10.3) 08/30/24 05:43 Impressions Pelvis X-Ray 08/29/24 13:03 XR pelvis 1-2V routine CLINICAL HISTORY: In PACU - Post Surgical COMPARISON: 08/16/2024 FINDINGS: Right hip prosthesis shows no hardware complication. There is expected soft tissue gas. IMPRESSION: Unremarkable postoperative exam. ACT 112: Negative or not required by law. Electronically signed by: Zoltan Lynn M.D. 08/29/2024 1:47 PM
--- NOTE | 2024-08-30 11:00 | Discharge Summary ---
Date of Service August 30, 2024 Admission HPI Per Admitting Provider History of Present Illness (including history relevant to procedure): This 64-year-old male who presents today with his , for his preoperative history and physical. He is scheduled to undergo a right total hip arthroplasty on 08/29/[address] Andrade. The patient has had right hip pain since June 16. 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 There was no specific injury that he can recall. Hip pain became acutely worse and has been present since. It does wake him from sleep. He has pain with ADLs. It prevents him from doing certain activities. He has been unable to referee. Pain is worse with flexion as well as rotation. Also worse with weightbearing. No specific trauma prior to onset. He does have a history of blood clots and takes warfarin on a daily basis. He keeps his INR between 2.0 and 2.5. Admission Exam Per Admitting Provider Physical Exam: (relevant to the procedure, including heart and lung evaluation) General: Well-developed, well-nourished, middle-age male, in no acute distress. Sitting in a chair. Alert and oriented. HEENT: Normocephalic, atraumatic. Eyes PERRLA, EOMI. Nares patent bilaterally without turbinate enlargement. No nasal drainage. Oropharynx with moist oral mucosa. Good dentition. Neck: No JVD. Cardiac: RRR. No MGR. Peripheral pulses are 2+. Lungs: Clear to auscultation bilaterally. No crackles, rhonchi, or wheezing. Good air movement. Abdomen: Bowel sounds present x 4. Soft nontender. No organomegaly. No masses. Mild obesity. Extremities: Right hip evaluation reveals no deformity. He has hip flexion of 100 degrees before onset of discomfort in the groin. External rotation of 35 degrees. Internal rotation only to neutral. There is focal discomfort over the anterior flexion crease. Pain extends into the lateral hip. No current pain over his buttock or external rotators. No pain in his quadricep or hamstring muscle bellies. Ambulating today with a mildly antalgic gait. Neuro: Gross sensation is intact across the right leg by soft touch. Skin: Warm and dry with good turgor. No rashes. No edema present at the hip. Principal Diagnosis Right hip osteoarthritis Discharge Exam Right hip: Outer dressing was removed. Silverlon is clean dry and intact left in place. Patient is able to perform active straight leg raise test. He is able to actively dorsi and plantarflex foot. Quad strength is 4 out of 5. Patient has no discomfort with logroll testing. He tolerates passive hip flexion beyond 80 degrees and only feels a slight tugging sensation with light passive internal rotation and has no discomfort with external rotation. He is neurovascularly intact in the right lower extremity. Discharge Data Allergies Allergy/AdvReac Type Severity Reaction Status Date / Time oxycodone Allergy Hives Verified 08/29/24 09:23 Procedures Performed Operation Date: 08/29/24 11:20 Actual Procedures p Right Total Hip Arthroplasty, Uncemented(Right) - Salvatore Andrade MD Hospital Course (1) S/P total hip arthroplasty: Patient had an uneventful overnight stay following Right total hip arthroplasty. He is very pleased with the results of the surgery. He is scheduled to begin outpatient physical therapy on Monday near his home in [place]. Total hip precautions reviewed Weightbearing as tolerated with walker assistance Keep Silverlon dressing in place Ice with easy wrap DVT prophylaxis with Coumadin and CHATO stockings Pain control with p.o. medication Plan is to discharge home today with in-home physical therapy. Abduction pillow use x 6 weeks Follow-up at [facility] orthopedics as previously scheduled With questions contact our clinic at [phone] Total Time Total Time Spent Total Time Spent (In Minutes): 25 mins Discharge Plan Discharge Items Patient Disposition: Home - Self-Care Reason For Visit: Right Hip Osteoarthritis Discharge Diagnosis: s/p Right total hip arthroplasty Activity: As commented below Lifting: None Bathing: Keep incision dry Bathing Comment: May shower later today Sexual Activity: Wait until after follow-up appointment Exercise/Sports: Wait until after follow-up appointment Driving/Machine Use: No driving till cleared by route specialist Weightbearing: Right weightbearing Weightbearing Comment: As tolerated with walker assistance Non-emergency contact: Surgeon Call non-emergency contact if: you have any medication questions, your symptoms worsen, your pain is worsening, your temperature is above 101.5, your wound has increased drainage and your wound pain has increased Follow-up/Referrals: Carolina Alcantar PA-C [Primary Care Provider] - Diet: Regular Addtl Attending Provider Instructions: Post-operative Instructions Dear Patient and Family/Friends, Before you are discharged from the hospital, it is important to know what to expect when you get home after surgery. To that end, we have created this sheet of discharge instructions which covers many commonly asked questions. Make sure you go through this sheet in its entirety with your nurse before you are discharged. Please note that we will go over the specifics of your surgery and recovery when you return for your first post-operative visit. Sincerely, Dr. Andrade Medications 1. Tramadol 50 mg: Take 1 to 2 tablets every 4-6 hours as needed for postoperative pain control. This medication will be sent to your pharmacy. 2. Diclofenac sodium 75 mg: Take 1 tablet twice daily for the first 30 days postoperatively for pain and inflammation relief. A prescription will be sent to your pharmacy with 1 refill 3. Coumadin 5 mg: Resume your normal daily regimen for blood clot prevention. 4. Extra strength Tylenol 500 mg: Take 2 tablets every 6-8 hours as needed for additional supplemental pain control. Please purchase this medication. Pain Expect to be in a fair amount of pain after surgery. Remember, our goal is not to eliminate your pain, but to make it tolerable. It is a good idea to stay ahead of your pain by taking the medications you were prescribed once you get ho me. Typically, the pain starts improving 3-7 days after surgery. You should start weaning off the narcotic pain medication (oxycodone, hydrocodone, hydromorphone, morphine) as soon as your pain improves. Please call our office if your pain is not adequately controlled. Ice Ice your operative site at least 5 times a day for 15-30 minutes at a time. Make sure you have a thin cloth between the ice or cooling unit and your skin to prevent german bite. This is especially important if you received a nerve block. Continue icing your operative site for the first 5-7 days after surgery, then as needed. Diet/Nausea/Vomiting Start by drinking clear liquids and eating crackers. If you can tolerate this, then you may resume your normal diet. If you feel nauseated or vomit, take Zofran/ondansetron (if prescribed). Please call our office if you have intractable nausea or vomiting, or, if after hours, you may go to the Emergency Room for help. Constipation Constipation is a common side effect of narcotic pain medication. If you have not had a bowel movement within 2 days after surgery, we recommend purchasing an over the counter laxative such as Milk of Magnesia, Dulcolax, or Miralax from a local pharmacy, and taking it as instructed. Call our clinic if any questions. Nerve block The anesthesia team sometimes places a nerve block to help with post-operative pain control. This results in significant numbness and inability to move the extremity. The nerve block usually wears off in 8-12 hours, but sometimes can last up to 24 hours. Please call our office if you are still unable to move your extremity after 24 hours, unless you received a pain pump to take home. Nerve blocks typically wear off quickly, so start taking pain medication as soon as you start feeling soreness near your surgical site. Weight bearing and Range of Motion. Do not bear any weight through your operative extremity immediately after surgery. If you had upper extremity surgery, do not lift anything with that arm. If you are in a knee brace, keep it locked in place until your follow-up. We will discuss your weight bearing, range of motion, and lifting restrictions in detail at your first post-operative appointment. Continuous Passive Motion (CPM) Machine If you were prescribed a CPM machine, it will start after your first post- operative appointment, at which time we will give you instructions on the range of motion settings and duration of treatment Physical therapy You will be given a prescription for physical therapy or occupational therapy at your first post-operative appointment. Typically, patients start therapy within 1 week of surgery Wound care and showering We will inspect your wound at your first post-operative visit, and may do a dressing change at that time. Most patients will be in a water-proof dressing that is removed 14 days after surgery. It is normal to see some dried blood on the dressing. Do not remove your dressing, paper strips or sutures yourself unless you are given permission. Showering is allowed the day after surgery. Do not scrub or remove any dressings. The wound should not be submerged underwater (i.e. in a bathtub or pool) until 4 weeks after surgery CHATO stockings If you were given white stockings, these are to be worn at all times except to shower (on both legs) for the first 2 weeks after surgery. Driving You may not drive while taking narcotic pain medication or while in a cast, splint, sling or brace. You, the patient, need to make the final determination about when you are safe to drive, however, the earliest you may consider driving after surgery is below: Hand/Wrist/Elbow Surgery: 3 days Shoulder Surgery: 2 weeks Hip,/Knee/Ankle Surgery: 4 weeks Fracture repair: 6 weeks Return to Work Your return to work depends on what surgery was done and what type of work you do. Please bring any paperwork your employer needs completed to your first post-operative visit. Also, bring a description of your job duties, as this helps us to understand what risks you may face at work. Travel Avoid long distance travel (greater than 1 hour) in airplanes and cars for the first 6 weeks after surgery. If you must travel, you need to have a Doppler ultrasound done before you travel to rule out a blood clot in your legs. Follow-up You should have a follow-up appointment already scheduled 1-2 days after surgery. If not, please contact our office to make this appointment before you leave the hospital. When to call the office It is normal to have swelling and bruising in the limb that was operated on. This will improve with time. It is also normal to have fevers for the first 2 days after surgery. Reasons you should call your doctor include: Uncontrolled pain; Nausea, vomiting, or constipation that does not improve with medication; Fevers over 101.5, chills, sweats; Drainage or bleeding from the wound; Foul odor; Spreading areas of redness; Any other concerns. Contact Information Please call Dr. Andrade's office at [phone] with any concerns. Pending Studies at Discharge: No Stand-Alone Forms: My PEX Card, Smoking Cessation Medications and DC Order Prescriptions: New tramadol 50 mg Tablet 50 - 100 mg PO Q4H PRN (Reason: Post op pain relief) Qty: 28 0RF acetaminophen [Tylenol Extra Strength] 500 mg Tablet 1,000 mg PO Q8 30 Days Qty: 180 0RF diclofenac sodium 75 mg tablet,delayed release (DR/EC) 75 mg PO BID 30 Days Qty: 60 1RF Continued digestive enzymes Capsule 1 cap PO DAILY Rx Instructions: administer with food; swallow whole; do not crush/chew/dissolve/break/cut amlodipine 5 mg Tablet 5 mg PO QAM warfarin 5 mg Tablet 5 mg PO QPM sumatriptan succinate 6 mg/0.5 mL Pen Injector 6 mg SUBCUT UD PRN (Reason: migraines) [id number] [Red Wine Extract] 200-60 mg Capsule 1 cap PO DAILY Beet Root 1 cap PO DAILY Methylated Vitamin B Complex 1 cap PO DAILY Vitamin C 1 tab PO DAILY Glucosamine Chondroitin See Rx Instructions .ROUTE .COMPLEX Rx Instructions: Takes 3 capsules q AM Metamucil See Rx Instructions .ROUTE .COMPLEX Rx Instructions: Takes once daily collagen See Rx Instructions .ROUTE .COMPLEX Rx Instructions: 1 teaspoon collagen in coffee q AM turmeric See Rx Instructions .ROUTE .COMPLEX Rx Instructions: 1300mg capsules- takes 2 capsules daily enoxaparin [Lovenox] 40 mg/0.4 mL Syringe 40 mg SUBCUT Q12H Discharge Orders: Discharge Order (Routine); Ordered 08/30/24 Ordered By: Delano Bautista Admission Data Admit Date/Time: 08/29/24 13:03 Attending Provider: Salvatore Andrade Admit Provider: Salvatore Andrade Primary Care Provider: Carolina Alcantar Other Interventions: Discharge Summary Assessment (RN) Last Done: 08/30/24 10:27
== END 2024-08-30 11:47 | disposition home or self-care (01) | DRG 470 ==
LOC: ASU 09:15 → INTOOBSV 13:03 → 3E 13:03